=== PATIENT | male | born 1990 | race Caucasian/White ===

== ENCOUNTER 2022-10-18 17:27 | Inpatient (IN) | payer BC ==
[~2022-10-18] VITALS: Ht 190.5 cm; Wt 116.1 kg
--- NOTE | 2022-10-18 17:30 | NUR ---
BIBS FOR ABDOMINAL PAIN. A/O X 3, ABLE TO MAKE NEEDS KNOWN, TOLERATING WELL ON ROOM AIR.
--- NOTE | 2022-10-18 17:45 | NUR ---
URINE COLLECTED AND SENT
--- NOTE | 2022-10-18 17:47 | NUR ---
IV ESTABLISHED R AC 20G. LABS DRAWN AND SENT
[2022-10-18] MEDS ORDERED: MORPHINE SULFATE INJ 2 MG/ML DISP.SYRIN IV ONE ×2 (18:00→19:30)
[2022-10-18] MEDS ORDERED: ONDANSETRON HCL/PF 4 MG/2 ML VIAL IVP ONE (18:00)
[2022-10-18] MEDS ORDERED: IV NS 0.9% 1,000 ML BAG IV ONE (18:00)
[2022-10-18] MEDS ORDERED: ONDANSETRON HCL/PF 4 MG/2 ML VIAL ONE (18:09)
[2022-10-18] MEDS ORDERED: MORPHINE SULFATE INJ 2 MG/ML DISP.SYRIN ONE ×2 (18:09→20:07)
[2022-10-18 18:35] LABS: BASOPHILS % (AUTO) 0.1 % (0.0-2.0); EOSINOPHILS % (AUTO) 0.1 % (0.0-6.0); HEMATOCRIT 47 % (39-51); HEMOGLOBIN 15.8 g/dL (13.5-17.5); LYMPHOCYTES # (AUTO) 1.1 K/uL (0.8-4.8); LYMPHOCYTES % (AUTO) 9.9 % (20.0-44.0); MEAN CORPUSCULAR HGB CONC 34 g/dl (31.0-36.0); MEAN CORPUSCULAR VOLUME 90 fL (80-96); MONOCYTES # (AUTO) 0.7 K/uL (0.1-1.30); MONOCYTES % (AUTO) 6.8 % (2.0-12.0); NEUTROPHILS # (AUTO) 8.9 K/uL (1.8-8.9); NEUTROPHILS % (AUTO) 83.1 % (43.0-81.0); PLATELET COUNT (AUTO) 201 K/uL (150-450); RED BLOOD CELL COUNT(AUTO) 5.23 MIL/uL (4.5-6.0); WHITE BLOOD COUNT (AUTO) 10.7 K/uL (4.3-11.0)
[2022-10-18 18:51] LABS: CALCIUM, SERUM 9.4 mg/dL (8.5-10.1); CREATININE 0.9 mg/dL (0.6-1.3); POTASSIUM 3.6 mmol/L (3.5-5.1)
[2022-10-18] MEDS ORDERED: PIPERACILLIN /TAZOBACTAM 3.375 G in IV D5W 50 ML IV ONE (19:00)
[2022-10-18 19:01] LABS: ALBUMIN 4.4 g/dL (3.4-5.0); BILIRUBIN,DIRECT 0.2 mg/dL (0.0-0.2); BILIRUBIN,TOTAL 1.3 mg/dL (0.2-1.0); TOTAL PROTEIN, SERUM 7.6 g/dL (6.4-8.2)
[2022-10-18] MEDS ORDERED: PIPERACI/TAZO 3.375GM/D5W 50ML PB IV ONE (19:17)
--- NOTE | 2022-10-18 19:30 | NUR ---
JANI PUENTE AWAITING CALLBACK
[2022-10-18 19:35] LABS: BILIRUBIN,URINE NEGATIVE (NEGATIVE); COLOR,URINE YELLOW (YELLOW); LEUKOCYTE ESTERASE ,URINE NEGATIVE (NEGATIVE); NITRITE, URINE NEGATIVE (NEGATIVE); PROTEIN,URINE NEGATIVE (NEGATIVE); UGLUCOSE NEGATIVE (NEGATIVE); UROBILINOGEN,URINE 0.2 EU/dL (0.2)
--- NOTE | 2022-10-18 20:01 | NUR ---
PT SIGNED CONSENT FOR LAPRASCOPIC APPENDECTOMY POSSIBLE OPEN EXPLORATORY LAPAROTOMY
--- NOTE | 2022-10-18 20:04 | NUR ---
Room 312-2
--- NOTE | 2022-10-18 20:24 | NUR ---
PT SIGNED CONSENT FOR BLOOD TRANSFUSION AND ANESTHESIA
--- NOTE | 2022-10-18 20:33 | NUR ---
REOPRT GIVEN TO RACHEL PutnamW RN FOR DENG
[2022-10-18] MEDS ORDERED: HYDROMORPHONE INJ 2 MG/ML DISP.SYRIN ONE (20:40)
[2022-10-18] MEDS ORDERED: FENTANYL PF 250MCG/5ML AMPUL ONE (20:40)
[2022-10-18] MEDS ORDERED: FAMOTIDINE/PF INJ 20 MG/2 ML VIAL IV ONE (20:41)
[2022-10-18] MEDS ORDERED: MIDAZOLAM HCL 2 MG/2ML VIAL ONE (20:41)
[2022-10-18] MEDS ORDERED: ROCURONIUM BROMIDE 50 MG/5 ML ONE (20:41)
[2022-10-18] MEDS ORDERED: BUPIVACAINE MPF W/EPI 0.25% 30 ML VIAL ONE (20:55)
[2022-10-18] MEDS ORDERED: ANESTHESIA TRAY IN PYXIS 1 EA TRAY MC ONE (20:56)
[2022-10-18] MEDS ORDERED: LIDOCAINE 1% INJ 50 ML MDV IJ ONE (20:56)
--- NOTE | 2022-10-18 21:15 | NUR ---
PT TRANSFERRED TO OR WITH OR NURSE. ALL BELONGINGS WITH .
[2022-10-18] MEDS ORDERED: BACITRACIN ZINC OINT (15 GM) 15 GM TUBE TP ONE (22:14)
[2022-10-18] MEDS ORDERED: ZOLPIDEM TARTRATE 5 MG TABLET PO PRN (22:30)
[2022-10-18] MEDS ORDERED: MAG HYDROX/AL HYDROX/SIMETH 30 ML UDC PO PRN (22:30)
[2022-10-18] MEDS ORDERED: ACETAMINOPHEN 325 MG TABLET PO PRN (22:30)
[2022-10-18] MEDS ORDERED: MORPHINE SULFATE INJ 2 MG/ML DISP.SYRIN IV PRN (22:30)
[2022-10-18] MEDS ORDERED: MAGNESIUM HYDROXIDE 30 ML UDC PO PRN (22:30)
[2022-10-18] MEDS ORDERED: ONDANSETRON HCL/PF 4 MG/2 ML VIAL IVP PRN (22:30)
[2022-10-18] MEDS ORDERED: Z GUARD REMEDY 4 OZ OINT TP PRN (22:30)
[2022-10-18] MEDS ORDERED: HYDROCODONE/APAP 5/325MG TABLET PO PRN (22:30)
[2022-10-18] MEDS ORDERED: MEPERIDINE25 MG SYR 25 MG/ML VIAL ONE (23:03)
--- NOTE | 2022-10-18 23:30 | NUR ---
AUTOM[employer]BILE CARPET[employer] MOLDER NOTE PATIENT ARRIVED TO UNIT STABLE VIA GURNEY FROM OR, ACCOMPANIED BY . PATIENT IS A/OX4. NO S/S OF DISTRESS, BREATHING WITHOUT DIFFICULTY ON ROOM AIR. RAC #20 INTACT AND PATENT. PATIENT VS STABLE, WNL. PATIENT WAS ORIENTED TO THE UNIT. PATIENT GIVEN CALL WATTERS, AND INSTRUCTED ON ITS USE. PATIENT'S BELONGINGS ACCOUNTED FOR, LOGGED INTO SHEET, AND PLACED IN CHART. PATIENT GIVEN INSTRUCTION ON SPLINTING IF HE SHOULD FEEL THE NEED TO COUGH, OR IF HE SHOULD FEEL THE NEED TO VOMIT. SAFETY MEASURES IN PLACE: BED LOCKED AND AT LOWEST POSITION, RAILS UP X2, CALL WATTERS WITHIN REACH. WILL CONTINUE TO MONITOR PATIENT.
[2022-10-19] MEDS ORDERED: IV LR 1000 ML 1,000 ML IV ONE
[2022-10-19] MEDS ORDERED: PIPERACILLIN /TAZOBACTAM 3.375 G in IV D5W 50 ML IV SCH ×2 (01:00→12:00)
[2022-10-19] MEDS ORDERED: PIPERACI/TAZO 3.375GM/D5W 50ML PB IV ONE (02:12)
[2022-10-19] MEDS: CELECOXIB 100 MG CAPSULE PO SCH ×2 (02:19→08:58)
[2022-10-19] MEDS: GABAPENTIN 100 MG CAPSULE PO SCH ×2 (02:20→13:43)
[2022-10-19] MEDS: ACETAMINOPHEN 325 MG TABLET PO SCH ×3 (02:20→13:52)
[2022-10-19] MEDS: PIPERACILLIN /TAZOBACTAM 3.375 G in IV D5W 50 ML IV SCH ×2 (02:20→08:20)
[2022-10-19 02:48] VITALS: BP 100/81
--- NOTE | 2022-10-19 03:30 | NUR ---
RN NOTE SPOKE W/ NELLY AT [facility] ([phone]) REGARDING THE UPCOMING 0500 DOSE OF TYLENOL. PER NELLY, OK TO GIVE TYLENOL. PATIENT STABLE.
--- NOTE | 2022-10-19 04:46 | NUR ---
RN NOTE PATIENT GIVEN INCENTIVE SPIROMETER AND EDUCATED ON ITS USE. PATIENT RESPONDED HE UNDERSTOOD AND GAVE A VERBAL TEACH-BACK.
--- NOTE | 2022-10-19 06:29 | NUR ---
RN CLOSING NOTE PATIENT RESTING IN BED. A/OX4. NO S/S OF DISTRESS, BREATHING WITHOUT DIFFICULTY ON ROOM AIR. RAC #20 INTACT AND PATENT W/ LR 150ML/HR. SAFETY MEASURES IN PLACE: BED LOCKED AND AT LOWEST POSITION, RAILS UP X2, CALL WATTERS WITHIN REACH. WILL ENDORSE TO NEXT SHIFT FOR DENG.
[2022-10-19 06:58] LABS: BASOPHILS % (AUTO) 0.1 % (0.0-2.0); HEMATOCRIT 39 % (39-51); HEMOGLOBIN 13.3 g/dL (13.5-17.5); LYMPHOCYTES # (AUTO) 0.8 K/uL (0.8-4.8); LYMPHOCYTES % (AUTO) 8.8 % (20.0-44.0); MEAN CORPUSCULAR HGB CONC 34 g/dl (31.0-36.0); MEAN CORPUSCULAR VOLUME 89 fL (80-96); MONOCYTES # (AUTO) 0.6 K/uL (0.1-1.30); MONOCYTES % (AUTO) 5.9 % (2.0-12.0); NEUTROPHILS # (AUTO) 8.2 K/uL (1.8-8.9); NEUTROPHILS % (AUTO) 85.2 % (43.0-81.0); PLATELET COUNT (AUTO) 176 K/uL (150-450); WHITE BLOOD COUNT (AUTO) 9.6 K/uL (4.3-11.0)
[2022-10-19 07:00] VITALS: BP 103/59
[2022-10-19 07:14] LABS: CREATININE 1.1 mg/dL (0.6-1.3); MAGNESIUM 2.1 mg/dL (1.8-2.4); PHOSPHORUS 5.1 mg/dL (2.5-4.9); POTASSIUM 4.2 mmol/L (3.5-5.1)
--- NOTE | 2022-10-19 08:03 | NUR ---
RN OPENING NOTE PATIENT AWAKE IN BED, A/O X 4. ON ROOM AIR, BREATHING EVEN AND UNLABORED. NO SIGNS OF DISTRESS NOTED. PATEINT C/O OF ABDOMINAL OF ABDOMINAL PAIN AT THIS TIME. RIGHT AC IV ACCESS WITH 18G IV PATENT AND FLUSHING WELL. HEART SOUNDS REGULAR WITH NO ABNORMALITIES. BOWL SOUNDS ACTIVE WITH FLUCTUANCE. FALL AND SAFETY MEASURES IN PLACED, BED LOCKED IN LOWEST POSITION, BED ALARM ON, SIDE RAILS UP X 2, CALL LIGHT AND TABLE WITHIN REACH. ALL NEEDS ATTENDED AND ANTICIPATED. WILL CONTINUE TO MONITOR.
[2022-10-19] MEDS ORDERED: HYDROMORPHONE INJ 2 MG/ML DISP.SYRIN IV PRN ×2 (08:30)
[2022-10-19] MEDS ORDERED: IV LR 1000 ML 1,000 ML IV PRN (08:30)
[2022-10-19] MEDS ORDERED: ALLO300T2 PO (09:44)
[2022-10-19] MEDS ORDERED: LEVO500T90 PO (12:11)
[2022-10-19] MEDS ORDERED: HYDR-3972 PO (12:11)
[2022-10-19] MEDS ORDERED: DOCU-141 PO (12:11)
[2022-10-19] MEDS ORDERED: SENN-261 PO (12:15)
[2022-10-19] MEDS ORDERED: SORBITOL SOLUTION 70% 30 ML SOLUTION PO ONE (12:30)
[2022-10-19] MEDS ORDERED: LACTULOSE 10 G/15 ML UDC (PYXIS) PO ONE (12:30)
--- NOTE | 2022-10-19 16:26 | NUR ---
RN NOTE PATIENT CONTINUES TO BE AMBULATORY DRINKING CLEAR FLUIDS AND TAKING LAXITIVES THOUGH NO BM OR FLATUANCE OF YET. MD NOTIFIED.
--- NOTE | 2022-10-19 17:20 | NUR ---
AUCTION CLERK NOTE- PATIENT DISCHARGED AT 1720. PATIENT IS A/O X4 AND IS AMBULATORY. VITAL SIGNS STABLE. IV AND WRIST BAND REMOVED. ABDOMINAL SURGICAL WOUNDS DRESSING INTACT AND DRY. DISCHARGED INSTRUCTION GIVEN AND PATIENT INSTRUCTED ON COMPLICATIONS (N/V) CONTINUED CONSTIPATION AND PAIN. PATIENT INSTRUCTED TO CONTACT OFFICE OF DR LOTTIE MELGOZA. ESCORTED OFF UNIT BY STAFF.
== END 2022-10-19 17:20 | disposition home or self-care (01) | DRG 343 ==
LOC: ER 17:34 → MED 20:16
PROVIDERS: ADMIT Nurse Practitioner Acute Care; ATTEND Nurse Practitioner Acute Care
PROC: 0DTJ4ZZ Resection of Appendix, Percutaneous Endoscopic Approach (ICD-10-PCS; principal; 2022-10-18)
DX: K35.80 Unspecified acute appendicitis (principal); K59.00 Constipation, unspecified; E66.9 Obesity, unspecified; Z68.31 Body mass index [BMI] 31.0-31.9, adult; Z20.822 Contact with and (suspected) exposure to COVID-19; M10.9 Gout, unspecified; Z98.890 Other specified postprocedural states; K21.9 Gastro-esophageal reflux disease without esophagitis
CPT/HCPCS: 36415; 80048-TC; 80076-TC; 83690-TC; 83735-TC; 84100-TC; 85025-TC; 85730-TC; 87040-TC; 87081-TC; 88304-TC; 97116-TC; 97530-TC; A4223; C9803; G0378; J0690; J1100; J1170; J2175; J2250; J2270; J2405; J2543; J2704; J2765; J3010; J3490; J7030; J7040; J7060; J7120